=== PATIENT | female | born 1990 | race Caucasian/White ===

== ENCOUNTER 2024-10-03 11:20 | Outpatient (CLI) | payer OTHER, SELFPAY | END 2024-10-03 11:21 | disposition home or self-care (01) | LOC: FRMREF 11:22 | PROVIDERS: PCP Physician Assistant Medical; Visit Provider Obstetrics & Gynecology | DX: R68.89 Other general symptoms and signs (principal); Z31.41 Encounter for fertility testing | CPT/HCPCS: 84443 ==

== ENCOUNTER 2024-11-16 11:15 | Outpatient (CLI) | payer OTHER, SELFPAY | END 2024-11-16 11:16 | disposition home or self-care (01) | PROVIDERS: PCP Physician Assistant Medical; Visit Provider Advanced Practice Midwife | DX: Z34.91 Encounter for supervision of normal pregnancy, unspecified, first trimester (principal); Z3A.08 8 weeks gestation of pregnancy | CPT/HCPCS: 76817; 83020; 83021; 85660; 86592; 86703; 86704; 86706; 86762; 86787; 86803; 86850; 86900; 86901; 87086; 87340 ==

== ENCOUNTER 2024-12-13 12:41 | Outpatient (CLI) | payer OTHER, SELFPAY ==
[2024-12-13 21:41] LABS: Bacterial Vaginosis* Negative (Negative); Candida glab/krus NOT DETECTED (No Detected)
== END 2024-12-13 12:42 | disposition home or self-care (01) ==
LOC: NFLDREF 12:41
PROVIDERS: PCP Physician Assistant Medical; Visit Provider Obstetrics & Gynecology
DX: O26.891 Other specified pregnancy related conditions, first trimester (principal); N89.8 Other specified noninflammatory disorders of vagina; Z3A.12 12 weeks gestation of pregnancy
CPT/HCPCS: 81513; 87481; 87661

== ENCOUNTER 2025-02-07 08:10 | Outpatient (CLI) | payer OTHER, SELFPAY ==
--- NOTE | 2025-02-07 08:15 | CRLHL7_ITS ---
For Patients: As a result of the Century Cures Act, medical imaging exams and procedure reports are released immediately into your electronic medical record. You may view this report before your referring provider. If you have questions, please contact your health care provider. OBSTETRICAL ULTRASOUND ??? ANATOMY SURVEY, 02/07/2025 INDICATION: screening. CLINICAL HISTORY: LMP: 09/17/2024 MELO by LMP: 06/24/2025 Gestational age: 20 weeks 3 days TECHNIQUE: Real-time max-scale transabdominal imaging of the fetus was performed. PREVIOUS ULTRASOUND: 11/16/2024 FINDINGS: position: Breech Cervix: Visualized Technique: Transabdominal Length of closed cervix: 4.0 cm Placenta position: Anterior, left wall Placenta tip to internal os: 5.5 cm Umbilical cord: 3-vessel cord Placental insertion: Central Amniotic fluid: 3.7 cm SDP (greater than/equal to 2 to less than 8 cm) ANATOMY SURVEY: Observed Structures Cerebellum: Yes; 2.2 cm, 21 weeks 5 days Cisterna magna: Yes; 4.6 mm Nuchal fold: Yes; 5.1 mm Lateral ventricle: Yes; 6.5 mm CSP: Yes Midline falx: Yes Choroid plexus: Yes Spine: Yes Stomach: Yes Abdominal cord insert: Yes Urinary bladder: Yes Kidneys: Yes Diaphragm: Yes Nose/lips: Yes Orbital view: Yes Profile: Yes Upper extremities: Yes Lower extremities: Yes Hands: Yes Feet: Yes 4-chamber heart: Yes LVOT: Yes RVOT: Yes 3VV: Yes 3VTV: Yes BIOMETRY BPD: 4.8 cm, 20 weeks 4 days, 53% HC: 18.0 cm, 20 weeks 3 days, 42% AC: 16.2 cm, 21 weeks 2 days, 71% FL: 3.2 cm, 20 weeks 1 day, 30% FL/AC: 20.05% HC/AC ratio: 1.11 heart rate: 142 bpm age by this ultrasound: 20 weeks 6 days MELO by this ultrasound: 06/21/2025 Estimated weight: 370 grams (0 pounds 13 ounces) Percentile by MELO: 60% IMPRESSION: 1) Concordance of clinical and sonographic dating. 2) Normal anatomic survey. 3) Some residual blood products are present near the placental edge, considered incidental. PAUL PIKE M.D. Diagnostic Radiologist [email or web address] Transcribed: 11:[address]/Dictated by: Paul Pike MD @ 02/07/2025 10:56:00 AM (Electronically Signed)
== END 2025-02-07 08:11 | disposition home or self-care (01) ==
LOC: US 08:11
PROVIDERS: PCP Physician Assistant Medical; Visit Provider Obstetrics & Gynecology
DX: Z34.92 Encounter for supervision of normal pregnancy, unspecified, second trimester (principal); Z3A.20 20 weeks gestation of pregnancy
CPT/HCPCS: 76805

== ENCOUNTER 2025-04-04 08:50 | Outpatient (CLI) | payer OTHER, SELFPAY | END 2025-04-04 08:51 | disposition home or self-care (01) | PROVIDERS: PCP Physician Assistant Medical; Referring Provider Physician Assistant Medical; Visit Provider Obstetrics & Gynecology | DX: Z34.93 Encounter for supervision of normal pregnancy, unspecified, third trimester (principal) | CPT/HCPCS: 86592 ==

== ENCOUNTER 2025-04-09 08:12 | Outpatient (CLI) | payer OTHER, SELFPAY | END 2025-04-09 08:13 | disposition home or self-care (01) | LOC: NFLDREF 04-10 19:27 | PROVIDERS: PCP Physician Assistant Medical; Referring Provider Physician Assistant Medical; Visit Provider Obstetrics & Gynecology | DX: Z34.93 Encounter for supervision of normal pregnancy, unspecified, third trimester (principal) | CPT/HCPCS: 82951; 82952 ==

== ENCOUNTER 2025-04-18 14:20 | Outpatient (CLI) | payer OTHER, SELFPAY | END 2025-04-18 14:21 | disposition home or self-care (01) | LOC: NFLDREF 14:21 | PROVIDERS: PCP Physician Assistant Medical; Visit Provider Obstetrics & Gynecology | DX: R10.20 Pelvic and perineal pain unspecified side (principal) | CPT/HCPCS: 87086 ==

== ENCOUNTER 2025-05-03 09:57 | Outpatient (CLI) | payer OTHER, SELFPAY ==
[2025-05-03 10:18] VITALS: BP 112/69; PULSE 100
[2025-05-03 10:20] VITALS: RESP 16; TEMP 37.1
--- NOTE | 2025-05-03 11:22 | CRLHL7_ITS ---
For Patients: As a result of the Century Cures Act, medical imaging exams and procedure reports are released immediately into your electronic medical record. You may view this report before your referring provider. If you have questions, please contact your health care provider. INDICATION: CERVICAL LENGTH FOR LABOR COMPARISON: Obstetric ultrasound along 02/07/2025 TECHNIQUE: Limited obstetric ultrasound, transabdominal and transvaginal approach, utilizing grayscale and color Doppler FINDINGS: Sonographic imaging demonstrates a single living intrauterine gestation. The fetus has a regular cardiac rate of 161 beats per minute. The fetus has a vertex orientation. The placenta lies anterior, left wall without evidence of placenta previa. Amniotic fluid volume appears normal with single deepest pocket of 6.4 centimeters. The cervix is closed and measures 3.9 cm in length. IMPRESSION: The cervix is closed and measures 3.9 cm in length. Dictated by Jaya Louie MD @ 05/03/2025 12:50:57 PM (Electronically Signed)
[2025-05-03 11:48] LABS: Appearance Urine Clear (Clear)
[2025-05-03 12:10] LABS: Trichomonas No Trichomonas Seen (None Seen)
[2025-05-03 12:23] LABS: Fetal Fibronectin* Negative (Negative)
--- NOTE | 2025-05-03 13:11 | PC.OBNST ---
NST Note NST Note Start: 05/03/25 10:18 Freq: ONCE Status: Active Protocol: Document 05/03/25 13:00 BRM (Rec: 05/03/25 13:11 BRM No Response) NST Note 2 Para (# of births) 1 EDC 06/24/25 Gestational Age In 32 Weeks & 4 Days Weeks & Days Patient Presented Contractions/cramping with Complaint(s) of Reactive Yes Appropriate for Yes Gestational Age ELISA Martines RN Date 05/03/25 Reactive Yes Appropriate for Yes Gestational Age ELISA Bueno RN Date 05/03/25 OB NST charge Yes Complete NST Note Yes via Write Note The provider's electronic signature indicates the NST is reactive/appropriate for gestational age. *Note to provider: If an addendum is required, open the patient's chart and click on the note under the Nurse/Allied Health tab.
== END 2025-05-03 13:00 | disposition home or self-care (01) ==
LOC: OB OUT 09:58 → OB 09:59
PROVIDERS: PCP Physician Assistant Medical; Visit Provider Obstetrics & Gynecology
DX: O47.03 False labor before 37 completed weeks of gestation, third trimester (principal); Z3A.32 32 weeks gestation of pregnancy
CPT/HCPCS: 59025; 76815; 76817; 81001; 81003; 84112; 87086; 87210; G0463

== ENCOUNTER 2025-05-27 12:12 | Outpatient (CLI) | payer OTHER, SELFPAY ==
--- NOTE | 2025-05-27 12:15 | CRLHL7_ITS ---
For Patients: As a result of the Cures Act, medical imaging exams and procedure reports are released immediately into your electronic medical record. You may view this report before your referring provider. If you have questions, please contact your health care provider. OBSTETRICAL ULTRASOUND ??? FOLLOW-UP INDICATION: Measuring small for dates. Follow-up growth. CLINICAL HISTORY: MELO by LMP: 06/24/2025 Gestational Age: 36 weeks 0 days COMPARISON: 05/03/2025, 02/07/2025, 11/16/2024. TECHNIQUE: Real-time max-scale transabdominal imaging of the fetus was performed. FINDINGS: Fetus: Single Cervix: Not visualized positioning: Vertex Amniotic Fluid: 7.3 cm SDP Placenta technique: Transabdominal Placenta position: Anterior, left wall heart rate: 135 bpm BIOMETRY: BPD: 8.8 cm, 35 weeks 5 days, 50% HC: 32.6 cm, 36 weeks 6 days, 41% AC: 32.2 cm, 36 weeks 1 day, 63% FL: 7.1 cm, 36 weeks 1 day, 51% FL/AC Ratio: 21.94% HC/AC ratio: 1.01 EFW: 2866 grams; 6 lbs. 5 oz. age by this ultrasound: 36 weeks 2 days MELO by this ultrasound: 06/22/2025 Percentile by MELO: 56% IMPRESSION: 1. Sonographic gestational age is 36 weeks 2 days and sonographic due date is 06/22/2025. Good correlation with dates. Normal interval growth. 2. Estimated weight is 56th percentile. Abdominal circumference is 63rd percentile. PAUL PIKE M.D. Diagnostic Radiologist [email or web address] Transcribed: 5:[address]/Dictated by: Paul Pike MD @ 05/27/2025 3:48:00 PM (Electronically Signed)
== END 2025-05-27 12:13 | disposition home or self-care (01) ==
LOC: US 12:13
PROVIDERS: PCP Physician Assistant Medical; Visit Provider Obstetrics & Gynecology
DX: O36.5930 Maternal care for other known or suspected poor fetal growth, third trimester, not applicable or unspecified (principal); Z3A.36 36 weeks gestation of pregnancy
CPT/HCPCS: 76816

== ENCOUNTER 2025-05-27 13:22 | Outpatient (CLI) | payer OTHER, SELFPAY ==
[2025-05-28 13:00] LABS: Strep B DNA Probe Negative (Negative)
[2025-05-28 13:09] LABS: Strep B Susceptibility Needed? No
== END 2025-05-27 13:23 | disposition home or self-care (01) ==
LOC: NFLDREF 13:22
PROVIDERS: PCP Physician Assistant Medical; Visit Provider Obstetrics & Gynecology
DX: Z34.93 Encounter for supervision of normal pregnancy, unspecified, third trimester (principal)
CPT/HCPCS: 87081; 87653